=== PATIENT | female | born 1985 | race Caucasian/White ===

== ENCOUNTER 2024-11-30 17:52 | Emergency (ER) | payer OTHER ==
[2024-11-30 18:16] VITALS: TEMP 97.7; O2SAT 99
--- NOTE | 2024-11-30 18:52 | ERPHSYRPT ---
- History of Present Illness Time Seen by Provider: 11/30/24 18:10 Source: patient Patient Subjective Stated Complaint: pt stated " I was playing with my dog, I tripped and hit a brick wall inside our home, and I think I broke my arm." Triage Nursing Assessment: patient ambulates per self with son at bedside. She has c/o pain in the right wrist. minor bruising and swelling to right wrist. pt took aleve for pain after incident. Easy non labored breating. no other pain r eported. patient states she did not hit her head. Physician History: Female presents on fall on right wrist. Tripped over her dog landing on bricks in entryway. Pain with range of motion. No numbness or weakness. No head injury or spine injury. No shoulder or elbow pain Home Medications: Amlodipine Besylate 5 mg PO DAILY 11/30/24 [History] Ezetimibe/Rosuvastatin Calcium [Rosuvastatin-Ezetimibe 10-10Mg] 10 mg PO DAILY 11/30/24 [History] Insulin Glargine,Hum.rec.anlog [Lantus] 30 unit SQ HS 11/30/24 [History] Losartan Potassium 100 mg PO DAILY 11/30/24 [History] Metformin HCl [Metformin ER Osmotic] 1,000 mg PO DAILY 11/30/24 [History] Pioglitazone HCl 30 mg PO DAILY 11/30/24 [History] Hx Tetanus, Diphtheria Vaccination/Date Given: Yes Hx Influenza Vaccination/Date Given: No Hx Pneumococcal Vaccination/Date Given: No Immunizations Up to Date: Yes Travel Risk - International Travel Have you traveled outside of the country in past 3 weeks: No - Emerging Infectious Disease Are you exhibiting symptoms associated with any current EIDs: No - Review of Systems Constitutional: No Fever, No Chills Eyes: No Symptoms Ears, Nose, & Throat: No Symptoms Respiratory: No Cough, No Dyspnea Cardiac: No Chest Pain, No Edema, No Syncope Abdominal/Gastrointestinal: No Abdominal Pain, No Nausea, No Vomiting, No Diarrhea Genitourinary Symptoms: No Dysuria Musculoskeletal: Arthralgias, Joint Swelling, No Back Pain, No Neck Pain Skin: No Rash Neurological: No Dizziness, No Focal Weakness, No Sensory Changes Psychological: No Symptoms Endocrine: No Symptoms All Other Systems: Reviewed and Negative - Past Medical History Pertinent Past Medical History: Yes Cardiac History: Hypertension Endocrine Medical History: Diabetes Type II Musculoskeletal History: No Pertinent History GI Medical History: No Pertinent History History: No Pertinent History Psycho-Social History: No Pertinent History Other Medical History: tubal ligation 2020 - Past Surgical History Other Surgical History: tubal ligation 2020 - Female History Hx Last Menstrual Period: 11/07/2024 Hx Now: No - Social History Smoking Status: Never smoker Exposure to second hand smoke: No Drug Use: none - Social Determinants of Health Will the patient participate in the screening: Yes Do you worry about a steady place to live?: Yes Do you have any problems with any of the following?: No known problems In the past 12 months,have you had to go without utilities?: No Transportation Issues: No Has anyone in your support network made you feel unsafe?: No Have you or anyone in your house had to go w/o enough food: No - Nursing Vital Signs Nursing Vital Signs: Initial Vital Signs Temperature 97.0 F 11/30/24 18:00 Pulse Rate 86 11/30/24 18:00 Respiratory Rate 18 11/30/24 18:00 Blood Pressure 125/81 11/30/24 18:00 O2 Sat by Pulse Oximetry 100 11/30/24 18:00 Pain Scale Pain Intensity 10 - Physical Exam General Appearance: no apparent distress, alert Eye Exam: PERRL/EOMI, eyes nml inspection Ears, Nose, Throat Exam: normal ENT inspection, TMs normal, pharynx normal, moist mucous membranes Neck Exam: normal inspection, non-tender, supple, full range of motion Respiratory Exam: normal breath sounds, lungs clear, No respiratory distress Cardiovascular Exam: regular rate/rhythm, normal heart sounds, normal peripheral pulses Gastrointestinal/Abdomen Exam: soft, normal bowel sounds, No tenderness, No mass Back Exam: normal inspection, normal range of motion, No CVA tenderness, No vertebral tenderness Extremity Exam: normal inspection, other (She has no laceration. She has some contusion over the distal right wrist. The hand elbow and shoulder are nontender. She may show vascular intact. Has some mild scaphoid tenderness to palpation also) Neurologic Exam: alert, oriented x 3, cooperative, normal mood/affect, nml cerebellar function, nml station & gait, sensation nml, No motor deficits Skin Exam: normal color, warm, dry, No rash Lymphatic Exam: No adenopathy SpO2: 99 Ordered Tests: Active Orders 24 hr Category Date Time Status WRIST (MIN 3 VIEWS) Stat Exams 11/30/24 18:18 Taken Lab/Rad Data: Patient has scaphoid tenderness. Has swelling and limited range of motion clinically consistent with fracture with x-ray with no displaced fracture. Awaiting radiology read will be placed in splint. Given the soft tissue swelling and discomfort I suspect that nondisplaced injury or ligament injury. Of asked her to do a walk-in Ortho clinic this week for recheck when the swelling is improved. Take Tylenol for pain. Follow-up return instructions given - Departure Departure Disposition: Home Clinical Impression: Right wrist injury Condition: Stable Critical Care Time: No Referrals: CORBY HERNÁNDEZ MD [Primary Care Provider, [facility]] - Follow up/PCP as directed Instructions: Wrist Pain Additional Instructions: Placed in a splint as you are swelling is concerning for nondisplaced fracture or ligament injury. Radiology will read the x-rays tomorrow. No lifting or use of hand until cleared by Ortho. Ice and elevate.
[2024-11-30 18:58] VITALS: BP 122/74; PULSE 83; RESP 16
--- NOTE | 2024-12-01 08:47 | XRAY ---
Indication: Pain following fall. Trauma. Comparison: None 3 view right wrist obtained. No bony, articular, or soft tissue abnormalities.
== END 2024-11-30 18:59 | disposition home or self-care (01) ==
LOC: ED 17:52
DX: S69.91XA Unspecified injury of right wrist, hand and finger(s), initial encounter (principal); W22.01XA Walked into wall, initial encounter; I10 Essential (primary) hypertension; E11.9 Type 2 diabetes mellitus without complications; Z79.84 Long term (current) use of oral hypoglycemic drugs; Z79.4 Long term (current) use of insulin; Z79.899 Other long term (current) drug therapy; Z59.819 Housing instability, housed unspecified